=== PATIENT | female | born 1975 | race American Indian/Alaskan Native ===

== ENCOUNTER 2016-07-11 07:36 | Emergency (ER) | payer MEDICAID, OTHER ==
[2016-07-11 08:26] LABS: Basophils % (Auto) 0.5 % (0.0-1.8); Eosinophils % (Auto) 0.5 % (0.0-4.3); Hematocrit 33.7 % (30.3-42.9); Hemoglobin 10.6 gm/dl (10.1-14.3); Mean Corpuscular HGB Conc 31 % (30-34); Mean Corpuscular Volume 72 fl (79-97); Platelet Count 355 K/mm3 (140-440); Red Blood Count 4.66 M/mm3 (3.65-5.03); Red Cell Distribution Width 16.5 % (13.2-15.2); White Blood Count 8.6 K/mm3 (4.5-11.0)
[2016-07-11 08:27] LABS: Mean Corpuscular Hemoglobin 23 pg (28-32)
[2016-07-11 08:49] LABS: Alanine Aminotransferase 10 units/L (7-56); Albumin 4.3 g/dL (3.9-5); Alkaline Phosphatase 59 units/L (35-129); Anion Gap 18 mmol/L; BUN/Creatinine Ratio 21.66; Bilirubin,Total < 0.2 mg/dL (0.1-1.2); Blood Urea Nitrogen 13 mg/dL (7-17); Calcium 8.8 mg/dL (8.4-10.2); Carbon Dioxide 23 mmol/L (22-30); Chloride 102.2 mmol/L (98-107); Glucose 97 mg/dL (65-100); Lipase 23 units/L (13-60); Potassium 3.7 mmol/L (3.6-5.0); Sodium 139 mmol/L (137-145); Total Protein 8.4 g/dL (6.3-8.2)
[2016-07-11 09:31] LABS: Bilirubin,Urine NEG (Negative); Blood,Urine LG (Negative); Ketones,Urine TR mg/dL (Negative); Leukocyte Esterase,Urine NEG (Negative); Mucus,Urine FEW /HPF; Nitrite,Urine NEG (Negative); Protein,Urine <15 mg/dL mg/dL (Negative); Urobilinogen,Urine < 2.0 mg/dL (<2.0)
[2016-07-11] MEDS ORDERED: NACL 0.9% 1000 ML 1,000 ML IV ONE (12:17)
[2016-07-11] MEDS ORDERED: NORMODYNE IV ONE (12:17)
[2016-07-11] MEDS ORDERED: MORPHINE IV ONE ×2 (12:17→14:30)
[2016-07-11] MEDS ORDERED: ZOFRAN IV ONE (12:18)
--- NOTE | 2016-07-11 12:20 | Emergency Department Report ---
[id number] 12:13 - HPI HPI: This is a 40-year-old Afro-[place] female presents to the emergency Department , after driving herself in to be seen, with complaint of a 3 to four-day history of frontal headache, nausea, vomiting. Patient denies any significant abdominal pain but says she does have some when actively vomiting. She went to [facility] on Monday and Monday for the same complaints. She said she was checked for influenza, which was negative, given a flu shot, and given stuff for nausea and IV fluid. She says she has not improved. Patient just recently switched to [facility] but used to see Dr. Kenneth [place]. She also sees Dr. lawson for some renal insufficiency. She has a history of insulin-dependent diabetes and hypertension. She's not been able to take her home medications secondary to her vomiting. No recent travel or sick contacts at home. ED Past Medical Hx - Past Medical History Hx Hypertension: Yes Hx Heart Attack/AMI: No Hx Congestive Heart Failure: No Hx Diabetes: Yes Hx Liver Disease: No Hx Renal Disease: Yes Hx Sickle Cell Disease: No Hx Seizures: No Hx Asthma: No Hx COPD: No - Surgical History Additional Surgical History: tubal ligation. section. LEFT GREAT TOE AMPUTATION - Social History Smoking Status: Never Smoker Substance Use Type: None - Medications Home Medications: Home Medications Medication Instructions Recorded Confirmed Last Taken Type Metoprolol [Lopressor TAB] 25 mg PO BID #60 tablet 08/14/15 07/11/16 10/07/15 05 :00 Rx amLODIPine [Norvasc] 10 mg PO QDAY #30 tablet 08/14/15 07/11/16 10/07/15 05:00 Rx cloNIDine [Catapres] 0.1 mg PO BID 10/01/15 07/11/16 10/07/15 05:00 History HYDROcodone/APAP 5-325 [[place] 1 each PO Q6HR PRN #10 tablet 07/11/16 Unknown Rx 5/325] Insulin NPH Human Isophane See Protocol SUB-Q AMHY 07/11/16 07/11/16 Unknown History [HumuLIN N] Lisinopril [Lisinopril] 5 mg PO DAILY 07/11/16 07/11/16 Unknown History Ondansetron [Zofran Odt] 4 mg PO Q8H PRN #10 tab.rapdis 07/11/16 Unknown Rx ED Review of Systems ROS: Stated complaint: NAUSEA/HEADACHE Other details as noted in HPI Comment: All other systems reviewed and negative Constitutional: denies: chills, fever Eyes: denies: eye pain, eye discharge, vision change ENT: denies: ear pain, throat pain Respiratory: denies: cough, shortness of breath, wheezing Cardiovascular: denies: chest pain, palpitations Gastrointestinal: nausea, vomiting. denies: diarrhea Genitourinary: denies: urgency, dysuria, discharge Musculoskeletal: denies: back pain, joint swelling, arthralgia Skin: denies: rash, lesions Neurological: headache. denies: weakness, numbness, paresthesias Physical Exam - Physical Exam Vital Signs: Vital Signs 07/11/16 07/11/16 07/11/16 07:49 11:27 12:11 Temperature 98.2 F 98.1 F Pulse Rate 109 H 107 H Respiratory 18 20 20 Rate Blood Pressure 178/94 Blood Pressure 189/89 [Left] O2 Sat by Pulse 100 98 Oximetry Physical Exam: GENERAL: The patient is well-developed well-nourished. HEENT: Normocephalic. Atraumatic. Extraocular motions are intact. Patient has moist mucous membranes. Pupils equal reactive to light bilaterally. No nystagmus. NECK: Supple. Trachea is midline. CHEST/LUNGS: Clear to auscultation. There is no respiratory distress noted. HEART/CARDIOVASCULAR: Regular. There is no tachycardia. There is no gallop rub or murmur. ABDOMEN: Abdomen is soft. Nontender to palpation. Patient has hyperactive bowel sounds. There is no abdominal distention. Obese habitus. SKIN: There is no rash. There is no diaphoresis. NEURO: The patient is awake, alert, and oriented. The patient is cooperative. The patient has no focal neurologic deficits. The patient has normal speech. Cranial nerves II through XII grossly intact. MUSCULOSKELETAL: There is no tenderness or deformity. There is no limitation range of motion. There is no evidence of acute injury. ED Course Vital Signs 07/11/16 07/11/16 07/11/16 07:49 11:27 12:11 Temperature 98.2 F 98.1 F Pulse Rate 109 H 107 H Respiratory 18 20 20 Rate Blood Pressure 178/94 Blood Pressure 189/89 [Left] O2 Sat by Pulse 100 98 Oximetry ED Medical Decision Making - Lab Data Result diagrams: 07/11/16 08:05 07/11/16 08:05 - Radiology Data Radiology results: report reviewed, image reviewed interpreted by me: Abdominal x-ray does not show any acute process. CT of the head does not show any acute process including no hemorrhage, mass, shift, diffuse edema or skull fracture. - Medical Decision Making 40-year-old female presents the emergency department with complaint of nausea, vomiting, and headache. Patient also presents with very elevated blood pressure but did not take her blood pressure medication secondary to the vomiting. Patient was given IV fluid resuscitation, pain medication and Zofran. Patient's labs are unremarkable including no signs of infection, electrolyte abnormalities, renal insufficiency, glucose abnormalities. Normal belly labs and the patient is not . No urinary tract infection. An abdominal x-ray was done that did not show any acute process. Patient was reevaluated multiple times and still complained of some headache despite her blood pressure being better controlled, so a CT of the head was done. CT of the head did not show any bleed, shift, mass or any acute process. Patient was given a second dose of pain medication and started to get some significant relief. She does not appear to have any focal, motor or sensory deficits. Cranial nerves are intact. 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 She'll return to the ER with any worsening of her symptoms or any acute distress. - Differential Diagnosis tension headache, brain bleed, colitis, gastroenteritis, Critical Care Time: No Critical care attestation.: If time is entered above; I have spent that time in minutes in the direct care of this critically ill patient, excluding procedure time. ED Disposition Clinical Impression: Hypertension Qualifiers: Hypertension type: essential hypertension Qualified Code(s): I10 - Essential ( primary) hypertension Nausea & vomiting Qualifiers: Vomiting type: unspecified Vomiting Intractability: non-intractable Qualified Code(s): R11.2 - Nausea with vomiting, unspecified Headache Qualifiers: Headache type: unspecified Headache chronicity pattern: acute headache Intractability: not intractable Qualified Code(s): R51 - Headache Disposition: DISCHARGED TO HOME OR SELFCARE Is pt being admited?: No Condition: Stable Instructions: Abdominal Pain (ED), Hypertension (ED), Acute Headache (ED) Additional Instructions: Please follow-up with your primary care doctor in the next few days. Return to the emergency department with any worsening of her symptoms or any acute distress. You've been prescribed a medication that is sedating. Therefore this medication cannot be mixed with alcohol, or taken prior to driving, working, or being responsible for children. Prescriptions: HYDROcodone/APAP 5-325 [[place] 5/325] 1 each PO Q6HR PRN #10 tablet PRN Reason: Pain Ondansetron [Zofran Odt] 4 mg PO Q8H PRN #10 tab.rapdis PRN Reason: Nausea Referrals: PRIMARY CARE, [Primary Care Provider] - 3-5 Days WAYNE COLLAZO MD [Staff Physician] - 3-5 Days Forms: Work/School Release Form(ED) Time of Disposition: 16:13
--- NOTE | 2016-07-11 12:43 | XRay Report ---
ABDOMEN TWO VIEWS: History: Abdominal pain. There is no evidence of free air beneath the diaphragms. The gas pattern within the abdomen is unremarkable. There is no evidence of bowel dilatation, significant air-fluid levels, or masses. The psoas margins are adequately visualized. IMPRESSION: Unremarkable abdomen.
--- NOTE | 2016-07-11 15:34 | Cat Scan Report ---
CT scan of head without contrast: History: Headache. Findings: Ventricles are normal in size and midline in location. No definite evidence of acute ischemia or hemorrhage. No extra-axial fluid collection. Focal area of low attenuation measuring 2 cm in diameter adjacent to the right occipital horn may be part of the occipital horn or could represent chronic ischemia. Normal sinuses and mastoid air cells. Impression: No definite acute intracranial abnormality. Findings as detailed above.
[2016-07-11 16:27] VITALS: BP 149/82
== END 2016-07-11 16:26 | disposition home or self-care (01) ==
LOC: ED 07:36
DX: I10 Essential (primary) hypertension (principal); R11.2 Nausea with vomiting, unspecified; R51 Headache; E11.9 Type 2 diabetes mellitus without complications; N28.9 Disorder of kidney and ureter, unspecified; Z79.82 Long term (current) use of aspirin
CPT/HCPCS: 36415; 70450; 74020; 80053; 81001; 82962; 83690; 84703; 85025; 96361; 96374; 96375; 96376; 99284; J2270; J2405; J7030